=== PATIENT | male | born 1940 | race Caucasian/White ===

== ENCOUNTER 2018-05-02 08:52 | Emergency (ER) | payer OTHER, SELFPAY ==
[2018-05-02] VITALS (33 sets, daily range): BP systolic 98–126; BP diastolic 43–81; PULSE 71–109; RESP 15–24; TEMP 32.4–37.6; O2SAT 94–100
[2018-05-02] MEDS: SODIUM CHLORIDE 0.9% 1,000 ML 1000 ML IV ×2 (08:53→10:34)
--- NOTE | 2018-05-02 08:53 | DI.RAD.S_ITS ---
PROCEDURE: XR CHEST 1V INDICATIONS: trauma TECHNIQUE: One view of the chest was acquired. COMPARISON: [facility], , CHEST 2 VIEW, 07/09/2013, 10:47. FINDINGS: Surgical changes and devices: None. Lungs and pleura: Very low lung volumes. Given limitations, the lungs are clear. No pleural effusions or pneumothorax. Mediastinum: Mediastinal contours appear normal. Heart size is normal. Bones and chest wall: No suspicious bony lesions. Overlying soft tissues appear unremarkable. There is gaseous distention of stomach with lucency projecting over the left upper quadrant of the abdomen. IMPRESSION: 1. Lucency in left upper quadrant the abdomen suggests gaseous distention of the stomach a period consider gastric bowel obstruction. 2. Very low lung volumes precludes full evaluation of the lung trujillo. Dictated by: Aviva Mason M.D. on 05/02/2018 at 9:33 Approved by: Aviva Mason M.D. on 05/02/2018 at 9:34
--- NOTE | 2018-05-02 08:53 | DI.RAD.S_ITS ---
PROCEDURE: XR PELVIS 1-2V INDICATIONS: trauma TECHNIQUE: Single view(s) of the pelvis acquired. COMPARISON: None. FINDINGS: Bones: No fractures or dislocations. No suspicious bony lesions. Moderate degenerative change in the hip joints, sacroiliac joints, and lower lumbar spine. Soft tissues: Visualized bowel gas pattern is normal. No suspicious soft tissue calcifications. Vascular calcification. IMPRESSION: Intact pelvis. Dictated by: Aviva Mason M.D. on 05/02/2018 at 9:35 Approved by: Aviva Mason M.D. on 05/02/2018 at 9:36
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
--- NOTE | 2018-05-02 09:18 | DI.CT.S_ITS ---
PROCEDURE: CT CERVICAL SPINE WO CON INDICATIONS: trauma/hypothermia TECHNIQUE: Noncontrast 3 mm thick sections acquired from the skull base to the T4 level. Sagittal and coronal reformats were then constructed. For radiation dose reduction, the following was used: automated exposure control, adjustment of mA and/or kV according to patient size. COMPARISON: [facility], CT, C-SPINE WITHOUT CONTRAST, 08/25/2009, 14:51. FINDINGS: Image quality: Excellent. Bones: No fractures or dislocations. Visualized superior ribs are intact. Spine degenerative disc disease and facet arthropathy. Soft tissues: Prevertebral soft tissues are normal in thickness. No paravertebral hematomas. No apical pneumothoraces. Dystrophic calcifications noted in the posterior paraspinal soft tissues adjacent to the C4-C7 spinous processes. IMPRESSION: No fracture. No acute osseous lesion. If symptoms and/or clinical suspicion for pathology persists, evaluation with MRI may be helpful for further assessment. Dictated by: Zunilda Melo MD, PhD on 05/02/2018 at 9:36 Approved by: Zunilda Melo MD, PhD on 05/02/2018 at 9:46
--- NOTE | 2018-05-02 09:18 | DI.CT.S_ITS ---
PROCEDURE: CT HEAD/BRAIN WO CON INDICATIONS: trauma/hypothermia TECHNIQUE: Noncontrast 4.5 mm thick angled axial sections acquired from the foramen magnum to the vertex, with coronal and sagittal reformats. For radiation dose reduction, the following was used: automated exposure control, adjustment of mA and/or kV according to patient size. COMPARISON: [facility], CT, HEAD WITHOUT CONTRAST, 11/11/2011, 9:56. FINDINGS: Image quality: Excellent. CSF spaces: Basal cisterns are patent. No extra-axial fluid collections. The ventricles are symmetric in size and shape. Brain: No intracranial bleeds or masses. There is cerebral volume loss for age, with resultant ventricular and sulcal prominence. There are periventricular and deep white matter chronic small vessel ischemic changes. There is intracranial internal carotid artery and vertebral artery atherosclerosis. Skull and face: Calvarium and visualized facial bones appear intact, without suspicious lesions. Incidental note made of hyperostosis frontalis. Sinuses: Visualized sinuses and mastoids are clear. Prior functional endoscopic sinus surgery changes noted. IMPRESSION: No acute intracranial disease process. Dictated by: Zunilda Melo MD, PhD on 05/02/2018 at 9:33 Approved by: Zunilda Melo MD, PhD on 05/02/2018 at 9:36
--- NOTE | 2018-05-02 09:39 | DI.US.S_ITS ---
PROCEDURE: US PERIPH VENOUS LOW EXTREM RT INDICATIONS: EDEMA POST FALL TECHNIQUE: Real-time imaging, as well as color and pulse Doppler interrogation, were performed of the lower extremity deep veins from the inguinal ligament to the popliteal fossa. COMPARISON: None. FINDINGS: The deep veins are normally compressible, and free of intraluminal thrombus. Color and pulse Doppler demonstrate normal phasic intraluminal flow. There is normal augmentation response to distal compression maneuver. IMPRESSION: No DVT found. Dictated by: Darell Thompson M.D. on 05/02/2018 at 10:13 Approved by: Darell Thompson M.D. on 05/02/2018 at 10:13
--- NOTE | 2018-05-02 09:39 | DI.RAD.S_ITS ---
PROCEDURE: XR ANKLE RT MIN 3V INDICATIONS: unknown trauma, significant swelling TECHNIQUE: 3 views of the ankle were acquired. COMPARISON: None. FINDINGS: Bones: No fractures or dislocations. Ankle mortise is normally aligned. No suspicious bony lesions. Soft tissues: No tibiotalar joint effusion. Achilles tendon appears normal. Soft tissue swelling around ankle joint particularly over lateral malleolus is seen. IMPRESSION: No gross acute ankle fracture or dislocation. Ankle soft tissue swelling particularly over lateral malleolus. Dictated by: Ren Burnett M.D. on 05/02/2018 at 10:16 Approved by: Ren Burnett M.D. on 05/02/2018 at 10:17
[2018-05-02 09:43] LABS: Add Manual Diff / Slide Review NO; Basophils Absolute Auto 100 /uL (0-100); Basophils Percent Auto 0.6 % (0-2); Eosinophils Absolute Auto 100 /uL (0-450); Eosinophils Percent Auto 1.3 % (2-4); Hematocrit 31.1 % (41-53); Hemoglobin 10.5 g/dL (13.5-17.5); Lymphocytes Absolute Auto 1300 /uL (1100-4500); Lymphocytes Percent Auto 13.5 % (25-40); Mean Corpuscular HGB Conc 33.6 % (30-36); Mean Corpuscular Hemoglobin 33.8 PG (26-34); Mean Corpuscular Volume 100.6 fL (80-100); Monocytes Absolute Auto 1000 /uL (0-900); Monocytes Percent Auto 10.7 % (3-14); Neutrophils Absolute Auto 7100 /uL (1500-7000); Neutrophils Percent Auto 73.9 % (50-75); Platelet Count 352 X10^3/uL (150-400); Red Blood Cell Count 3.09 X10^6/uL (4.5-5.9); Red Cell Distribution Width 18.1 % (11.6-14.8); White Blood Cell Count 9.6 X10^3/uL (4.5-11.0)
[2018-05-02 09:56] LABS: Lactate (Lactic Acid) 4.8 mmol/L (0.7-2.1)
[2018-05-02 10:11] LABS: Bacteria Urine None Seen; WBC Urine None Seen (0-5/HPF)
[2018-05-02 10:12] LABS: Appearance Urine UA CLEAR; Bilirubin Urine UA NEGATIVE (NEGATIVE); Color Urine UA YELLOW; Glucose Urine UA NEGATIVE (Negative); Ketones Urine UA NEGATIVE (NEGATIVE); Leukocyte Esterase Urine UA NEGATIVE (NEGATIVE); Nitrite Urine UA NEGATIVE (Negative); Occult Blood Urine UA 2+ (Negative); Protein Urine UA 1+ (Negative); Specific Gravity Urine UA 1.025 (1.000-1.035); Urobilinogen Urine UA 0.2 E.U./dL (0.2)
[2018-05-02 10:15] LABS: Culture Indicated Urine Cult Not Indicated; RBC Urine 1-5/HPF (0-5/HPF)
[2018-05-02 10:21] LABS: Urine Amphetamines Negative (Negative); Urine Barbiturates Negative (Negative); Urine Benzodiazepines Negative (Negative); Urine Cocaine Negative (Negative); Urine MDMA Negative (Negative); Urine Methadone Negative (Negative); Urine Methamphetamines Negative (Negative); Urine Morphine/Opi cutoff 2000 Negative (Negative); Urine Oxycodone Negative (Negative); Urine Phencyclidine Negative (Negative); Urine Tetrahydrocannabinol Negative (Negative); Urine Tricyclic Antidepressant Negative (Negative)
[2018-05-02 10:25] LABS: INR 1.1 (0.9-1.3); Prothrombin Time 12.9 SECONDS (10.1-12.7)
[2018-05-02 10:27] LABS: PTT Partial Thromboplastin Tim 32 SECONDS (26.4-36.2)
[2018-05-02 10:30] LABS: Alanine Aminotransferase 25 IU/L (21-72); Albumin Globulin Ratio 1.3 (1.0-2.8); Alkaline Phosphatase 119 U/L (38-126); Aspartate Aminotransferase 40 IU/L (17-59); BUN Creatinine Ratio 20.9 (6-22); Bilirubin Total 0.6 mg/dL (0.2-1.3); Blood Urea Nitrogen 23 mg/dL (9-20); Calcium 9.2 mg/dL (8.4-10.2); Carbon Dioxide 20 mmol/L (22-32); Chloride 103 mmol/L (98-107); Creatine Kinase 205 U/L (55-170); Estimated Glomerular Filt Rate > 60.0 mL/min (>60); Ethanol (ETOH) < 10 mg/dL; Globulin 3.2 g/dL (1.7-4.1); Glucose 266 mg/dL (80-110); Lipase 26 U/L (23-300); Potassium 4.1 mmol/L (3.4-5.1); Sodium 140 mmol/L (137-145); Total Protein 7.2 g/dL (6.3-8.2)
--- NOTE | 2018-05-02 10:50 | PC.NURSE ---
0853, patient stripped of cold blankets, radiant warmer in place. No c-spine tenderness, c-spine maintained while patient rolled. Rectal temp obtained, poor rectal tone noted. No tenderness to spine, hips, or pelvis upon palpation. Santa hugger placed underneath patient. Radiant warmer on top.
--- NOTE | 2018-05-02 10:52 | PC.NURSE ---
0930 Santa Hugger set at medium(38degrees). Radfiant warmer still in place. Hellen with temp probe placed to continuously measure temperature.
--- NOTE | 2018-05-02 11:03 | PC.NURSE ---
1045 Parris Larry, emergency contact, notified and on her way. She does not know the patient's meds.
--- NOTE | 2018-05-02 11:03 | PC.NURSE ---
0855 All normal saline boluses given using fluid warmer.
[2018-05-02 11:04] LABS: CKMB % Relative Index 3.4 % (1.5-5.0); Creatine Kinase MB 6.94 ng/mL (<2.37); HEMOLYSIS < 15 (0-50)
[2018-05-02 12:29] LABS: Troponin I 0.277 ng/mL (0.01-0.034)
[2018-05-02] MEDS: ATORVASTATIN 20 MG TABLET 40 MG PO (12:54)
[2018-05-02] MEDS: ASPIRIN 325 MG TABLET PO (12:55)
[2018-05-02] MEDS: METOPROLOL TARTRATE 5 MG/5 ML INJ IV (12:59)
[2018-05-02] MEDS: HEPARIN 5,000 UNIT/ML VIAL 5000 UNIT IV (13:05)
[2018-05-02] MEDS: HEPARIN DRIP 25,000 UNIT/500 ML IV.SOLN 15.12 UNIT IV (13:05)
--- NOTE | 2018-05-02 13:10 | PC.NURSE ---
Santa Sagastume Dc'carrie at this time, Patient temp is 98.3. Heparin double checked by Katalina Kelly RN. Patient denies chest pain, states I feel happy.
--- NOTE | 2018-05-02 13:13 | PC.NURSE ---
Dr. Meraz at bedside discussing results right now wiht patient, he verbalizes understanding.
--- NOTE | 2018-05-02 13:15 | PC.NURSE ---
1120 Radiant Warmer DC'd at this time, patient's temp is 98F.
[2018-05-02 13:39] LABS: Reflexed Lactate in 2 Hours Y
[2018-05-02 14:10] LABS: Lactate 2HR (Lactic Acid Rflx) 1.2 mmol/L (0.7-2.1)
--- NOTE | 2018-05-02 16:34 | PC.NURSE ---
1511 Patient is much more alert, sitting up in bed speaking with son Josiah, daughter in law, and friend. Family gave him his hearing aids and inserted them. At this time I asked him more pointed questions about what happened and last night, past medical history, meds, etc. Patient seems unsure and is giving me conflicting answers. Earlier he was answering me with yes or no and occasional one word answers that were appropriate, however now he appears to be confused. I asked family if he is normally confused, they said he is becoming increasingly more confused nad it is coming and going. GCS 14.
--- NOTE | 2018-05-29 12:01 | PC.NURSE ---
Addendum entered by Lucía Greenfield R.N. 05/29/18 12:12: Patient transferred at 1710 on 05/02/18, Heparin drip was stopped at this time and placed on [facility] pump to be continued at same rate during transfer. Received about 68ml of medication before transfer. Original Note: Patient transferred at 1710 on 05/02/18, Heparin drip was stopped at this time and placed on [facility] pump to be continued at same rate during transfer.
== END 2018-05-02 17:10 | disposition admitted as inpatient to this hospital (09) ==
PROVIDERS: Emergency Provider Emergency Medicine
DX: I21.4 Non-ST elevation (NSTEMI) myocardial infarction (principal); T68.XXXA Hypothermia, initial encounter; X31.XXXA Exposure to excessive natural cold, initial encounter; R55 Syncope and collapse
CPT/HCPCS: 36415; 36591; 51701; 70450; 71045; 72125; 72170; 73610; 80053; 80305; 80320; 81001; 82550; 82553; 82962; 83605; 83690; 84484; 85025; 85610; 85730; 86850; 86900; 86901; 93005; 93971; 96361; 96365; 96366; 99285; 99291; 99292; G0390; J1644